=== PATIENT | male | born 1985 | race Caucasian/White ===

== ENCOUNTER 2016-10-28 16:06 | Emergency (ER) | payer OTHER ==
[2016-10-28 16:15] VITALS: BP 140/90; PULSE 95; TEMP 98; BMI 24.3
[2016-10-28] MEDS ORDERED: CLINDAMYCIN 600MG PREMIX IVPB 50 ML IVPB ONE ×2 (16:54→17:16)
[2016-10-28] MEDS ORDERED: IBUPROFEN 600 MG TABLET (FP) PO ONE ×2 (16:55→17:10)
--- NOTE | 2016-10-28 16:57 | PDOC ---
History of Present Illness - General History Source: Patient Exam Limitations: No Limitations - History of Present Illness Initial Comments: 10/28/16 17:11 Patient is a 31 year old male with a significant past medical history of who presents to the ED with complaints of eye problems beginning Friday. He reports edema of his right eye beginning friday night. Patient states scratching an ingrown hair Friday evening followed by applying alcohol which led to edema in the right eye. He reports going to [facility] for Right eye edema and was prescribed pioclinda. He states taking three doses of antibiotics within last 24 hours with no visual sign of relief. He reports slight relief after applying hot compress last night. Denies chest pain, SOB. Denies fever, chills. Denies blurred vision, headache. Denies any other symptoms. Allergies: None Social history: Social drinker. No smoking. No substance abuse. Surgical history: None PMD: Dr. Cole <Silverio Payne - Last Filed: 10/28/16 17:11> - General History Source: Patient Exam Limitations: No Limitations - History of Present Illness Initial Comments: 10/28/16 16:55 Patient states had onset of a small pimple to his right brow 3 days ago but is progressively become more swollen. States he squeezed it and obtained a small amount of purulent drainage 2 days ago but woke up yesterday morning with worse swelling and pain to that same site that included his eyelids and orbit. Went to an urgent care where they prescribed him clindamycin 3 times a day bactroban ointment which she has been using but feels swelling has not improved. <Maribel Cooper - Last Filed: 10/28/16 18:48> - General Chief Complaint: Eye Problem Stated Complaint: EYE PROBLEM Time Seen by Provider: 10/28/16 16:18 Past History <Silverio Payne - Last Filed: 10/28/16 17:11> - Psycho/Social/Smoking Cessation Hx Suicidal Ideation: No Smoking History: Never smoked Information on smoking cessation initiated: No <Maribel Cooper - Last Filed: 10/28/16 18:48> - Past Medical History Allergies/Adverse Reactions: Allergies Allergy/AdvReac Type Severity Reaction Status Date / Time No Known Allergies Allergy Verified 10/28/16 16:15 Home Medications: Ambulatory Orders Clindamycin [Cleocin -] 300 mg PO TID 10/28/16 Mupirocin Cream [Bactroban 2% Cream -] 1 applic TP TID 10/28/16 Review of Systems - Review of Systems Able to Perform ROS?: Yes Comments:: 10/28/16 17:12 GENERAL/CONSTITUTIONAL: No fever or chills. No weakness. HEAD, EYES, EARS, NOSE AND THROAT: +Right eye edema. No change in vision. No ear pain or discharge. No sore throat. GASTROINTESTINAL: No nausea, vomiting, diarrhea or constipation. GENITOURINARY: No dysuria, frequency, or change in urination. CARDIOVASCULAR: No chest pain or shortness of breath. RESPIRATORY: No cough, wheezing, or hemoptysis. MUSCULOSKELETAL: No joint or muscle swelling or pain. No neck or back pain. SKIN: No rash NEUROLOGIC: No headache, vertigo, loss of consciousness, or change in strength/ sensation. ENDOCRINE: No increased thirst. No abnormal weight change. HEMATOLOGIC/LYMPHATIC: No anemia, easy bleeding, or history of blood clots. ALLERGIC/IMMUNOLOGIC: No hives or skin allergy. All Other Systems: Reviewed and Negative <Silverio Payne - Last Filed: 10/28/16 17:11> *Physical Exam - Vital Signs Last Vital Signs Temp Pulse Resp BP Pulse Ox 98 F 95 H 18 140/90 99 10/28/16 16:10 10/28/16 16:10 10/28/16 16:10 10/28/16 16:10 10/28/16 16:10 - Physical Exam Comments: 10/28/16 17:12 GENERAL: Awake, alert, and fully oriented, in no acute distress HEAD: No signs of trauma EYES: PERRLA, EOMI, + erythema and swelling to right orbit corcumfrensially with swelling to right upper lid. 0.5 cm lesion to inner right brow. Tender and pointing. No crepitus or step offs. Vision acuity at normal limits. sclera anicteric, conjunctiva clear ENT: Erythema and swelling to nasal inner canthus. Auricles normal inspection, hearing grossly normal, nares patent, oropharynx clear without exudates. Moist mucosa NECK: Normal ROM, supple, no lymphadenopathy, JVD, or masses LUNGS: Breath sounds equal, clear to auscultation bilaterally. No wheezes, and no crackles HEART: Regular rate and rhythm, normal S1 and S2, no murmurs, rubs or gallops ABDOMEN: Soft, nontender, normoactive bowel sounds. No guarding, no rebound. No masses EXTREMITIES: Normal range of motion, no edema. No clubbing or cyanosis. No cords, erythema, or tenderness NEUROLOGICAL: Cranial nerves II through XII grossly intact. Normal speech, normal gait SKIN: Warm, Dry, normal turgor, no rashes or lesions noted. <Silverio Payne - Last Filed: 10/28/16 17:11> - Vital Signs Last Vital Signs Temp Pulse Resp BP Pulse Ox 98 F 95 H 18 140/90 99 10/28/16 16:10 10/28/16 16:10 10/28/16 16:10 10/28/16 16:10 10/28/16 16:10 <Maribel Cooper - Last Filed: 10/28/16 18:48> ED Treatment Course - LABORATORY CBC & Chemistry Diagram: 10/28/16 17:04 10/28/16 17:04 <Maribel Cooper - Last Filed: 10/28/16 18:48> Medical Decision Making - Medical Decision Making 10/28/16 18:11 Myosin 600 mg IV infusion almost complete. CBC reveals an almost 15,000 white count otherwise negative. Chemistries are pending. Patient states feels much improved, and has approximately 30-40% less swelling to his right orbit. States tenderness is not as great. 10/28/16 18:47 Date a clindamycin, laboratory works all within normal limits except for 15,000 white count. Patient appearance much improved with much less swelling to his orbit, much less pain, and continues afebrile. We will discharge to follow up here tomorrow for wound check. Patient understands will need to return immediately to emergency department for recurrence of swelling, fevers or chills , or worsening of symptoms. We'll continue clindamycin and Bactroban as previously prescribed. <Maribel Cooper - Last Filed: 10/28/16 18:48> *DC/Admit/Observation/Transfer - Attestations Scribe Attestion: 10/28/16 17:13 Documentation prepared by Silverio Payne, acting as chief medical technologist for Maribel Cooper NP. <Silverio Payne - Last Filed: 10/28/16 17:11> - Discharge Dispostion Admit: No <Maribel Cooper - Last Filed: 10/28/16 18:48> Diagnosis at time of Disposition: Facial cellulitis - Discharge Dispostion Disposition: HOME Condition at time of disposition: Stable - Referrals Referrals: Steven Cole [Primary Care Provider] - - Patient Instructions Printed Discharge Instructions: DI for Orbital Cellulitis Additional Instructions: Rest, keep area elevated. Avoid strenuous activity or exercise until wound is healed Use hot soaks to area to bring more blood to the surface and encourage drainage Change his dressing daily until the wound is completely healed. May use Tylenol or Motrin for mild pain relief Use stronger medications as directed and prescribed Continue all medications as prescribed= Clindamyosin until completed Come to emergency department tomorrow for wound check, ask for Ginger in fast track Followup with private physician in 2-3 days for wound check Return to emergency Department for worsening swelling, pain, redness, fevers as needed - Post Discharge Activity Work/School Note: Back to Work
[2016-10-28 17:30] LABS: BASOPHIL 0.6 % (0-2.0); MCH 32.8 pg (25.7-33.7); MCHC 34.3 g/dl (32.0-35.9); MEAN CELL VOLUME 95.5 fl (80-96); MEAN PLT VOLUME 9.2 fl (7.5-11.1); NEUTROPHILS 76.5 % (42.8-82.8); PLATELET COUNT 274 K/MM3 (134-434); RDW 12.4 % (11.9-15.9); WHITE BLOOD COUNT 14.6 K/mm3 (4.0-10.0)
[2016-10-28 18:04] LABS: ALBUMIN 4.4 g/dl (3.4-5.0); ANION GAP 9 (8-16); CALCIUM 9.5 mg/dL (8.5-10.1); CO2 29 mmol/L (21-32); GLUCOSE,RANDOM 92 mg/dL (74-106); SGOT/AST 13 U/L (15-37); SGPT/ALT 26 U/L (12-78)
[2016-10-28 18:06] LABS: ALK PHOS 73 U/L (45-117); BILIRUBIN,TOTAL 0.7 mg/dL (0.2-1.0); TOT PROT 7.9 g/dl (6.4-8.2)
== END 2016-10-28 18:47 | disposition home or self-care (01) ==
LOC: JERFT 16:06
DX: H05.011 Cellulitis of right orbit (principal)
CPT/HCPCS: 36415; 80053; 85025; 96365; 99281-25

== ENCOUNTER 2016-10-30 15:23 | Emergency (ER) | payer OTHER ==
[2016-10-30 15:48] VITALS: TEMP 98.3; BMI 24.2
--- NOTE | 2016-10-30 16:49 | PDOC ---
History of Present Illness - General Chief Complaint: Pain Stated Complaint: REVISIT/ INFECTION Time Seen by Provider: 10/30/16 16:28 History Source: Patient - History of Present Illness Timing/Duration: reports: other Location: reports: face Past History - Past Medical History Allergies/Adverse Reactions: Allergies Allergy/AdvReac Type Severity Reaction Status Date / Time No Known Allergies Allergy Verified 10/30/16 15:48 Home Medications: Ambulatory Orders Clindamycin [Cleocin -] 300 mg PO TID 10/28/16 Sulfamethoxazole/Trimethoprim [Bactrim Ds -] 1 tab PO BID #20 tablet 10/30/16 - Immunization History Td Vaccination: No Immunization Up to Date: No - Psycho/Social/Smoking Cessation Hx Anxiety: No Suicidal Ideation: No Smoking History: Never smoked Have you smoked in the past 12 months: No Hx Alcohol Use: No Drug/Substance Use Hx: No Substance Use Type: None Review of Systems - Review of Systems Constitutional: No: Chills, Fever, Malaise, Weakness Integumentary: Yes: Erythema *Physical Exam - Vital Signs Last Vital Signs Temp Pulse Resp BP Pulse Ox 98.3 F 86 18 152/93 98 10/30/16 15:42 10/30/16 15:42 10/30/16 15:42 10/30/16 15:42 10/30/16 15:42 - Physical Exam General Appearance: Yes: Appropriately Dressed. No: Apparent Distress HEENT: positive: Normal Voice Neck: positive: Supple Respiratory/Chest: negative: Respiratory Distress Integumentary: positive: Dry, Warm, Other (minimal R periorbital swelling w/ ~ 2cm induration to medial R brow w/ minimal overlying erythema, ?fluctucance) Neurologic: positive: Fully Oriented, Alert, Normal Mood/Affect ED Treatment Course - LABORATORY CBC & Chemistry Diagram: 10/30/16 17:04 10/30/16 17:04 Medical Decision Making - Medical Decision Making 10/30/16 16:45 31 yo male, no sig hx, here with persistent and possibly worsening facial pain and swelling. Patient states approximately 5 days ago he scratched what he thought was a pimple near right brow and states area became swollen and painful. States he was seen in an urgent care center 5 nights ago and was started on clindamycin but states symptoms worsened so presented to [facility] 3 days ago and seen in fast track . Patient had blood work drawn and was told white count was 15 and that he would need to be admitted. Patient states he declined admission and was treated with one dose IV clinda and discharged to follow up for wound check. Pt returned today and was initially seen in fast track by INTELLECT[employer] PROPERTY MANAGER Andolino and referred to ED for admission. Patient states though right periorbital swelling has improved, continues to have a hard, painful area of swelling near right brow that appears to be increasing in size. No fever, chills or malaise See exam Facial cellulitis w/ possible abscess On clindamycin x 5 days Stable and non-toxic appearing -IV vanco -labs -?CT -will discuss dispo w/ admitting team 10/30/16 17:14 Discussed with hospitalist and Dr. Gray and decision was made to start pt on IV Vanco and get facial CT. Plan is to admit to observation overnight regardless of collection on CT are not, in order to administer multiple doses of IV antibiotics. 10/30/16 18:06 10/30/16 18:40 Signed out to DUARTE Escobedo pending CT read 10/31/16 07:24 10/31/16 07:25 *DC/Admit/Observation/Transfer Diagnosis at time of Disposition: Facial cellulitis - Discharge Dispostion Disposition: HOME - Prescriptions Prescriptions: Sulfamethoxazole/Trimethoprim [Bactrim Ds -] 1 tab PO BID #20 tablet - Referrals Referrals: Mily Cedeno MD [Staff Physician] - Steven Cole [Primary Care Provider] - - Patient Instructions Printed Discharge Instructions: DI for Cellulitis -- Adult Additional Instructions: Please return in 12 hours/ ~8 am (10/31/2016) for : Vancomycin 1500mg IVB Blood work only if you have a fever or worsening symptoms Otherwise, IV antibiotic (Vancomycin 1500mg) and discharge to follow up with Dr. Cedeno/Infectious Disease specialist. You offered to be admitted to the emergency department for observation/IV antibiotics but wish to be discharge. As per our conversation, it is very important that you return for the next dose of vancomycin in 12 hours. Please understand that if you have a fever or your symptoms are worsened/ persists, he must be admitted to the hospital. TAKE THE BACTRIM DS 1 TABLET TWICE A DAY
[2016-10-30] MEDS ORDERED: VANCOMYCIN 1,500 MG in DEXTROSE 5%-WATER - 250 ML IVPB ONE (17:12)
[2016-10-30 17:16] LABS: BASOPHIL 1.1 % (0-2.0); EOSINOPHIL 2.2 % (0-4.5); MCH 32.9 pg (25.7-33.7); MCHC 34.5 g/dl (32.0-35.9); MEAN CELL VOLUME 95.4 fl (80-96); MEAN PLT VOLUME 9.4 fl (7.5-11.1); NEUTROPHILS 70.6 % (42.8-82.8); PLATELET COUNT 292 K/MM3 (134-434); RDW 12.5 % (11.9-15.9); WHITE BLOOD COUNT 13.2 K/mm3 (4.0-10.0)
[2016-10-30 17:53] LABS: ANION GAP 6 (8-16); CALCIUM 10.1 mg/dL (8.5-10.1); CO2 29 mmol/L (21-32); CREATININE 0.8 mg/dL (0.7-1.3); GLUCOSE,RANDOM 78 mg/dL (74-106); SGOT/AST 17 U/L (15-37); SGPT/ALT 28 U/L (12-78)
--- NOTE | 2016-10-30 17:58 | PDOC ---
*Physical Exam - Vital Signs Last Vital Signs Temp Pulse Resp BP Pulse Ox 98.3 F 86 18 152/93 98 10/30/16 15:42 10/30/16 15:42 10/30/16 15:42 10/30/16 15:42 10/30/16 15:42 - Physical Exam Comments: 10/30/16 17:58 The patient was examined by [DUARTE Ferraro] under my direct supervision. I personally evaluated the patient. I concur with the above findings and the plan of care. ED Treatment Course - LABORATORY CBC & Chemistry Diagram: 10/30/16 17:04 10/30/16 17:04 - ADDITIONAL ORDERS Additional order review: 10/30/16 17:04 RBC 4.80 MCV 95.4 MCHC 34.5 RDW 12.5 MPV 9.4 Neutrophils % 70.6 Lymphocytes % 19.2 D Monocytes % 6.9 Eosinophils % 2.2 Basophils % 1.1 *DC/Admit/Observation/Transfer Diagnosis at time of Disposition: Facial cellulitis - Discharge Dispostion Disposition: HOME - Prescriptions Prescriptions: Sulfamethoxazole/Trimethoprim [Bactrim Ds -] 1 tab PO BID #20 tablet - Referrals Referrals: Mily Cedeno MD [Staff Physician] - Steven Cole [Primary Care Provider] - - Patient Instructions Printed Discharge Instructions: DI for Cellulitis -- Adult Additional Instructions: Please return in 12 hours/ ~8 am (10/31/2016) for : Vancomycin 1500mg IVB Blood work only if you have a fever or worsening symptoms Otherwise, IV antibiotic (Vancomycin 1500mg) and discharge to follow up with Dr. Cedeno/Infectious Disease specialist. You offered to be admitted to the emergency department for observation/IV antibiotics but wish to be discharge. As per our conversation, it is very important that you return for the next dose of vancomycin in 12 hours. Please understand that if you have a fever or your symptoms are worsened/ persists, he must be admitted to the hospital. TAKE THE BACTRIM DS 1 TABLET TWICE A DAY
[2016-10-30 18:01] LABS: ALBUMIN 4.3 g/dl (3.4-5.0); ALK PHOS 64 U/L (45-117); BILIRUBIN,TOTAL 0.3 mg/dL (0.2-1.0); TOT PROT 7.8 g/dl (6.4-8.2)
[2016-10-30 19:27] VITALS: BP 159/97; PULSE 87
--- NOTE | 2016-10-30 20:16 | PDOC ---
*Physical Exam - Vital Signs Last Vital Signs Temp Pulse Resp BP Pulse Ox 98.3 F 87 20 159/97 98 10/30/16 15:42 10/30/16 19:26 10/30/16 19:26 10/30/16 19:26 10/30/16 19:56 ED Treatment Course - LABORATORY CBC & Chemistry Diagram: 10/30/16 17:04 10/30/16 17:04 - ADDITIONAL ORDERS Additional order review: Laboratory Results 10/30/16 17:04 Sodium 138 Potassium 4.7 Chloride 103 Carbon Dioxide 29 Anion Gap 6 L BUN 15 Creatinine 0.8 Creat Clearance w eGFR > 60 Random Glucose 78 Calcium 10.1 Total Bilirubin 0.3 D AST 17 D ALT 28 Alkaline Phosphatase 64 Total Protein 7.8 Albumin 4.3 10/30/16 17:04 RBC 4.80 MCV 95.4 MCHC 34.5 RDW 12.5 MPV 9.4 Neutrophils % 70.6 Lymphocytes % 19.2 D Monocytes % 6.9 Eosinophils % 2.2 Basophils % 1.1 - Medications Given in the ED: ED Medications Discontinued Medications Generic Name Dose Route Start Last Admin Trade Name Beni PRN Reason Stop Dose Admin Vancomycin HCl 1,500 mg/ 250 mls @ 250 mls/hr 10/30/16 17:12 10/30/16 17:45 Dextrose IVPB 10/30/16 18:11 250 mls/hr ONCE ONE Administration Protocol Progress Note - Progress Note Progress Note: Patient was offered admission for IV antibiotics due to right sided facial cellulitis Patient insists on being discharged and will return in 12 hours for IV antibiotics/vancomycin/second dose. Patient was informed, he can be d/c but he MUST return in 12 hours. Vancomycin 1500mg IVB Pt agrees with the plan. *DC/Admit/Observation/Transfer Diagnosis at time of Disposition: Facial cellulitis - Discharge Dispostion Admit: No - Referrals Referrals: Steven Cole [Primary Care Provider] - Mily Cedeno MD [Staff Physician] - - Patient Instructions Printed Discharge Instructions: DI for Cellulitis -- Adult Additional Instructions: Please return in 12 hours/ ~8 am (10/31/2016) for : Vancomycin 1500mg IVB Blood work only if you have a fever or worsening symptoms Otherwise, IV antibiotic (Vancomycin 1500mg) and discharge to follow up with Dr. Cedeno/Infectious Disease specialist. You offered to be admitted to the emergency department for observation/IV antibiotics but wish to be discharge. As per our conversation, it is very important that you return for the next dose of vancomycin in 12 hours. Please understand that if you have a fever or your symptoms are worsened/ persists, he must be admitted to the hospital. TAKE THE BACTRIM DS 1 TABLET TWICE A DAY
== END 2016-10-30 20:43 | disposition home or self-care (01) ==
LOC: JER 15:23
DX: H05.011 Cellulitis of right orbit (principal)
CPT/HCPCS: 36415; 70486-TC; 80053; 85025; 96365; 99283-25

== ENCOUNTER 2016-10-31 08:36 | Emergency (ER) | payer OTHER ==
[2016-10-31 08:43] VITALS: BP 141/89; PULSE 77; TEMP 98.6; BMI 24.2
[2016-10-31] MEDS ORDERED: VANCOMYCIN 1,500 MG in DEXTROSE 5%-WATER - 500 ML IVPB STA (09:08)
--- NOTE | 2016-10-31 09:19 | PDOC ---
History of Present Illness - General Chief Complaint: Wound Stated Complaint: REVISIT/ FOLLOW-UP Time Seen by Provider: 10/31/16 09:02 History Source: Patient Exam Limitations: No Limitations - History of Present Illness Initial Comments: 10/31/16 09:17 31 yr male here for wound check and a dose of IVAB vancomycin seen in ER yesterday. Pt started on bactrim last night has taken 2 doses pt states he is improved no fever no chills, no eye pain 10/31/16 11:34 10/31/16 11:34 Past History - Past Medical History Allergies/Adverse Reactions: Allergies Allergy/AdvReac Type Severity Reaction Status Date / Time No Known Allergies Allergy Verified 10/31/16 08:39 Home Medications: Ambulatory Orders Clindamycin [Cleocin -] 300 mg PO TID 10/28/16 Sulfamethoxazole/Trimethoprim [Bactrim Ds -] 1 tab PO BID #20 tablet 10/30/16 Other medical history: DENIES - Immunization History Td Vaccination: No Immunization Up to Date: Yes - Psycho/Social/Smoking Cessation Hx Anxiety: No Suicidal Ideation: No Smoking History: Current every day smoker Have you smoked in the past 12 months: No Number of Cigarettes Smoked Daily: 20 Information on smoking cessation initiated: No Hx Alcohol Use: No Drug/Substance Use Hx: No Substance Use Type: Cocaine, Marijuana *Physical Exam - Vital Signs Last Vital Signs Temp Pulse Resp BP Pulse Ox 98.6 F 77 15 141/89 98 10/31/16 08:39 10/31/16 08:39 10/31/16 08:39 10/31/16 08:39 10/31/16 08:39 - Physical Exam General Appearance: Yes: Nourished, Appropriately Dressed HEENT: positive: EOMI, MARIE Neck: positive: Supple. negative: Tender Respiratory/Chest: positive: Lungs Clear, Normal Breath Sounds Cardiovascular: positive: Regular Rhythm, Regular Rate Gastrointestinal/Abdominal: positive: Normal Bowel Sounds, Soft Musculoskeletal: positive: Normal Inspection Integumentary: positive: Normal Color, Dry, Warm, Other (right inner eyeborw with 2cm area of redness oozing, indurated, no surrounding cellulitus, OCTAVIA EOMI without any pain or discomfort) Neurologic: positive: Fully Oriented, Alert, Normal Mood/Affect, Normal Response , Motor Strength 5/5 Medical Decision Making - Medical Decision Making 10/31/16 11:34 no fever no chills, no eye pain pt has pictures on his phone which has shown the progression of the cellulitus, the area has improved is less red and indurated scant drainage from the area will give vanco 1500mg IV now warm compresses strict follow up with , pt has appointment for Friday *DC/Admit/Observation/Transfer Diagnosis at time of Disposition: Facial cellulitis - Discharge Dispostion Disposition: HOME Condition at time of disposition: Improved - Referrals Referrals: Steven Cole [Primary Care Provider] - Miri Crocker MD [Staff Physician] - - Patient Instructions Additional Instructions: follow with as planned or with frequent warm moist compresses to the area to allow for drainage, please cover with bandaid if you are going outside the home and the area is open continue taking the bactrim as directed return if any worsening symptoms
[2016-10-31] MEDS ORDERED: VANCOMYCIN 1 GRAM (PRE-DOCKED) 500 ML IVPB ONE (09:24)
== END 2016-10-31 13:08 | disposition home or self-care (01) ==
LOC: JERFT 08:36
DX: H05.011 Cellulitis of right orbit (principal); Z51.89 Encounter for other specified aftercare
CPT/HCPCS: 99281-25

== ENCOUNTER 2017-11-21 11:42 | Emergency (ER) | payer OTHER ==
[2017-11-21 11:49] VITALS: BP 149/87; PULSE 98; TEMP 99.1; BMI 24.2
[2017-11-21] MEDS ORDERED: TRIAMCINOLONE ACET 40MG/1ML VIAL IM ONE (12:05)
--- NOTE | 2017-11-21 12:07 | PDOC ---
History of Present Illness - General Chief Complaint: Redness To Affected Area Stated Complaint: ABSCESS BOIL Time Seen by Provider: 11/21/17 12:00 History Source: Patient Exam Limitations: No Limitations - History of Present Illness Initial Comments: CHIEF COMPLAINT: 32 y/o male c/o pimple to face with surrounding swelling to his upper lip x 2 days. HISTORY OF PRESENT ILLNESS: The patient has not tried to pop the pimple. He states he does not shave his face. He denies fevers Vital signs on arrival are notable for pulse of 98. REVIEW OF SYSTEMS: GENERAL/CONSTITUTIONAL: No fever/chills. No weakness. No weight change. MUSCULOSKELETAL: No joint or muscle swelling or pain. No neck or back pain. SKIN: +pimple to upper lip with swelling. NEUROLOGIC: No headache, vertigo, loss of consciousness, or loss of sensation. PHYSICAL EXAM: GENERAL: The patient is awake, alert, and fully oriented, in no acute distress. HEAD: Normal with no signs of trauma. ENT: Pupils equal, round and reactive to light, extraocular movements intact, sclera anicteric, conjunctiva clear. Neck supple. NEUROLOGICAL: Normal speech, normal gait. CN II-XII grossly intact. SKIN: Pimple with white head to middle of philtrum. Gentle pressure expressed thick purulent drainage. Moderate swelling to upper lip that is hard and non fluctuant, mostly on the right side of the upper lip. No streaking. No obvious swelling to nose or nares. Past History - Past Medical History Allergies/Adverse Reactions: Allergies Allergy/AdvReac Type Severity Reaction Status Date / Time No Known Allergies Allergy Verified 11/21/17 11:47 Home Medications: Ambulatory Orders Cephalexin [Keflex] 500 mg PO TID #21 capsule 11/21/17 Sulfamethoxazole/Trimethoprim [Bactrim Ds -] 1 tab PO BID #14 tablet 11/21/17 COPD: No - Immunization History Td Vaccination: No Immunization Up to Date: Yes - Suicide/Smoking/Psychosocial Hx Smoking History: Current every day smoker Have you smoked in the past 12 months: No Number of Cigarettes Smoked Daily: 20 Information on smoking cessation initiated: No Hx Alcohol Use: No Drug/Substance Use Hx: No Substance Use Type: Cocaine, Marijuana *Physical Exam - Vital Signs Last Vital Signs Temp Pulse Resp BP Pulse Ox 99.1 F 98 H 18 149/87 97 11/21/17 11:47 11/21/17 11:47 11/21/17 11:47 11/21/17 11:47 11/21/17 11:47 Medical Decision Making - Medical Decision Making A/P: 32 y/o male with draining abscess to upper lip. Will give IM kenalog to local area to decrease swelling as patient has a wedding tomorrow. Will discharge to home with rx for bactrim and keflex. Patient instructed to apply warm compresses and return to the ER with any worsening or concerning symptoms. The patient verbalizes understanding of all instructions, has no further questions and is awaiting discharge. *DC/Admit/Observation/Transfer Diagnosis at time of Disposition: Cellulitis, lip - Discharge Dispostion Disposition: HOME Condition at time of disposition: Good - Prescriptions Prescriptions: Cephalexin [Keflex] 500 mg PO TID #21 capsule Sulfamethoxazole/Trimethoprim [Bactrim Ds -] 1 tab PO BID #14 tablet - Referrals Referrals: Alma Rosa Fontaine MD [Primary Care Provider] - - Patient Instructions Printed Discharge Instructions: DI for Cellulitis -- Adult Additional Instructions: Discharge Instructions: -2 prescriptions for antibiotics have been sent to your pharmacy; please start immediately -Please apply warm compresses to affected area to help drain the area and help with swelling -Return to the ER with any worsening or concerning symptoms - Post Discharge Activity
[2017-11-21] MEDS ORDERED: TRIAMCINOLONE ACET 40MG/1ML VIAL ONE (12:13)
== END 2017-11-21 12:28 | disposition home or self-care (01) ==
LOC: JERFT 11:42
PROC: 3E0233Z Introduction of Anti-inflammatory into Muscle, Percutaneous Approach (ICD-10-PCS; principal; 2017-11-21)
DX: K13.0 Diseases of lips (principal)
CPT/HCPCS: 96372; 99281-25

== ENCOUNTER 2021-07-11 18:17 | Emergency (ER) | payer OTHER ==
[2021-07-11 18:22] VITALS: BP 136/89; PULSE 95; TEMP 98.7; BMI 26.2
[2021-07-11] MEDS ORDERED: IBUPROFEN 600 MG TABLET (FP) PO ONE ×2 (19:47→19:48)
== END 2021-07-11 19:54 | disposition home or self-care (01) ==
LOC: JERFT 18:17
DX: S62.346A Nondisplaced fracture of base of fifth metacarpal bone, right hand, initial encounter for closed fracture (principal)
CPT/HCPCS: 73130-TC-RT-FY; 99284-25

== ENCOUNTER 2021-11-09 11:34 | Emergency (ER) | payer OTHER ==
[2021-11-09 11:43] VITALS: BP 149/92; PULSE 73; RESP 19; TEMP 98; BMI 26.2
== END 2021-11-09 12:49 | disposition home or self-care (01) ==
LOC: JERFT 11:34
PROC: 0HQDXZZ Repair Right Lower Arm Skin, External Approach (ICD-10-PCS; principal; 2021-11-09)
DX: S81.811A Laceration without foreign body, right lower leg, initial encounter (principal); W25.XXXA Contact with sharp glass, initial encounter
CPT/HCPCS: 99282-25

== ENCOUNTER 2024-01-03 17:48 | Emergency (ER) | payer OTHER ==
[2024-01-03 17:57] VITALS: BP 152/86; PULSE 79; RESP 20; TEMP 98; BMI 27.6
[2024-01-03] MEDS ORDERED: ACETAMINOPHEN 500 MG TABLET (FP) ONE (18:30)
[2024-01-03] MEDS: ACETAMINOPHEN 500 MG TABLET (FP) PO ONE (18:34)
[2024-01-03] MEDS ORDERED: DIPHTH,PERTUSS(ACELL),TET 0.5 ML DISP.SYRIN IM ONE (18:46)
[2024-01-03] MEDS: DIPHTH,PERTUSS(ACELL),TET 0.5 ML DISP.SYRIN IM ONE (18:49)
[2024-01-03] MEDS ORDERED: CEPHALEXIN MONOHYDRATE 500 MG CAPSULE (UD) ONE (19:48)
[2024-01-03] MEDS: CEPHALEXIN MONOHYDRATE 500 MG CAPSULE (UD) PO ONE (20:02)
== END 2024-01-03 20:56 | disposition home or self-care (01) ==
LOC: JERFT 17:48
PROC: 0HQGXZZ Repair Left Hand Skin, External Approach (ICD-10-PCS; principal; 2024-01-03)
PROC: 3E0234Z Introduction of Serum, Toxoid and Vaccine into Muscle, Percutaneous Approach (ICD-10-PCS; 2024-01-03)
DX: S61.217A Laceration without foreign body of left little finger without damage to nail, initial encounter (principal); W26.8XXA Contact with other sharp object(s), not elsewhere classified, initial encounter; Z23 Encounter for immunization
CPT/HCPCS: 12001-25; 90471; 90715; 99284-25